=== PATIENT | female | born 1975 | race Hispanic/Latino ===

== ENCOUNTER 2016-10-23 10:50 | Emergency (ER) | payer MEDICAID ==
[2016-10-23 11:44] VITALS: BMI 51.0
[2016-10-23 11:47] VITALS: BP 133/92; PULSE 67; RESP 20; TEMP 98; O2SAT 98
--- NOTE | 2016-10-23 12:11 | C.PDOC ---
History Of Present Illness 41 y/o female with hx asthma c/o cough for more than 3 weeks; seen by PMD few days after start of cough and prescribed a 10 day course of Bactrim which she completed but still has cough with green sputum, pleuritic cp with cough. no fevers. sore throat x 2 days. no rhinorrhea, no nasal congestion. no ear pain. Time Seen by Provider: 10/23/16 11:54 Chief Complaint (Nursing): Cough, Cold, Congestion Past Medical History Reviewed: Historical Data, Nursing Documentation, Vital Signs Vital Signs: Last Vital Signs Temp 98.0 F 10/23/16 11:44 Pulse 67 10/23/16 11:44 Resp 20 10/23/16 11:44 BP 133/92 H 10/23/16 11:44 Pulse Ox 98 10/23/16 13:04 - Medical History PMH: Asthma Surgical History: No Surg Hx Family History: States: Unknown Family Hx - Social History Hx Tobacco Use: No Hx Alcohol Use: No Hx Substance Use: No - Immunization History Hx Tetanus Toxoid Vaccination: No Hx Influenza Vaccination: No Hx Pneumococcal Vaccination: No Review Of Systems Constitutional: Negative for: Fever, Chills ENT: Positive for: Throat Pain. Negative for: Ear Pain, Throat Swelling Cardiovascular: Negative for: Chest Pain Respiratory: Positive for: Cough, Pleuritic Pain. Negative for: Shortness of Breath Gastrointestinal: Negative for: Nausea, Vomiting, Abdominal Pain Skin: Negative for: Rash Physical Exam - Physical Exam Appears: Non-toxic, No Acute Distress Skin: Normal Color, Warm, Dry Head: Atraumatic, Normacephalic Eye(s): bilateral: Normal Inspection Ear(s): Bilateral: Normal Nose: Normal, No Discharge Oral Mucosa: Moist Tongue: Normal Appearing Lips: Normal Appearing Throat: Erythema (mild erythema, no exudates) Neck: Normal ROM Chest: Symmetrical, No Deformity, No Tenderness Cardiovascular: Rhythm Regular, No Murmur Respiratory: Normal Breath Sounds, No Accessory Muscle Use, No Rales, No Rhonchi , No Stridor, No Wheezing Extremity: No Pedal Edema, No Calf Tenderness Neurological/Psych: Oriented x3, Normal Speech, Normal Cognition ED Course And Treatment - Laboratory Results Urine POC: Negative O2 Sat by Pulse Oximetry: 98 Pulse Ox Interpretation: Normal - Radiology CXR: Read By Radiologist CXR Interpretation: No: No Acute Disease, Infiltrates Medical Decision Making Medical Decision Makin41 y/o asthmatic with cough for almost a month- upreg, cxr Disposition Counseled Patient/Family Regarding: Diagnosis, Need For Followup, Rx Given - Disposition Disposition: HOME/ ROUTINE Disposition Time: 13:05 Condition: STABLE Prescriptions: Albuterol 0.083% [Albuterol Sulfate 3 Ml] 3 ml IH BID #100 units Prednisone [Deltasone] 40 mg PO DAILY #6 tablet Albuterol HFA [Ventolin HFA 90 mcg/actuation (8 g)] 1 puff IH BID #1 inhaler Instructions: Acute Bronchitis (ED) Forms: General Discharge Instructions - Clinical Impression Clinical Impression: Bronchitis
--- NOTE | 2016-10-23 12:56 | RAD ---
HISTORY: cough x 1 m COMPARISON: 07/01/2016 TECHNIQUE: Chest PA and lateral FINDINGS: LUNGS: No focal airspace opacity. PLEURA: No significant pleural effusion identified. No pneumothorax apparent. CARDIOVASCULAR: Normal. OSSEOUS STRUCTURES: No significant abnormalities. VISUALIZED UPPER ABDOMEN: Normal. OTHER FINDINGS: None. IMPRESSION: No focal airspace opacity. No significant interval change. Cross-sectional imaging can be obtained if symptoms persist.
== END 2016-10-23 13:22 | disposition home or self-care (01) ==
LOC: C.ER 10:50
DX: J20.9 Acute bronchitis, unspecified (principal)

== ENCOUNTER 2016-11-18 14:32 | Emergency (ER) | payer MEDICAID ==
[2016-11-18 14:32] VITALS: BMI 51.0
[2016-11-18 14:40] VITALS: TEMP 99
[2016-11-18] MEDS ORDERED: Sodium Chloride 0.9% 1,000 ML IV ONE (15:17)
[2016-11-18] MEDS ORDERED: Sodium Chloride 0.9% 1,000 ML ONE (15:32)
[2016-11-18 15:39] LABS: BASO % 0.6 % (0.0-2.0); LYMPH # 0.6 K/uL (1.0-4.3); LYMPH % 14.5 % (20.0-40.0); MEAN CELL VOLUME 82.9 fL (81.0-99.0); MEAN CORPUSCULAR HEMOGLOBIN 28.9 pg (27.0-31.0); MEAN CORPUSCULAR HGB CONC 34.9 g/dL (33.0-37.0); MEAN PLATELET VOLUME 8.2 fL (7.2-11.7); MONO # 0.4 K/uL (0.0-0.8); MONO % 8.8 % (0.0-10.0); WHITE BLOOD COUNT 4.4 K/uL (4.8-10.8)
[2016-11-18 15:47] LABS: CHLORIDE 99 mmol/L (98-107)
[2016-11-18 15:48] LABS: SODIUM 134 mmol/L (132-148)
[2016-11-18 15:49] LABS: POTASSIUM 3.9 mmol/L (3.6-5.2)
[2016-11-18 15:51] LABS: ALB/GLOB RATIO 1.2 (1.0-2.1); ALKALINE PHOSPHATASE 65 U/L (38-126); AST/SGOT 47 U/L (14-36); BILIRUBIN,TOTAL 1.7 mg/dL (0.2-1.3); BLOOD UREA NITROGEN 9 mg/dL (7-17); CARBON DIOXIDE 27 mmol/L (22-30); GFR AFRICAN-AMERICAN > 60; INR 1.2; TOTAL PROTEIN 7.2 g/dL (6.3-8.3)
[2016-11-18 15:52] LABS: ALT/SGPT 56 U/L (9-52); CALCIUM 8.6 mg/dl (8.6-10.4); GLUCOSE,RANDOM 98 mg/dL (65-105); MAGNESIUM 1.7 mg/dL (1.6-2.3)
--- NOTE | 2016-11-18 16:13 | CT ---
PROCEDURE: CT HEAD WITHOUT CONTRAST. HISTORY: Headache COMPARISON: None available. TECHNIQUE: Axial computed tomography images were obtained through the head/brain without intravenous contrast. Radiation dose: Total exam DLP = 899.09 mGy-cm. This CT exam was performed using one or more of the following dose reduction techniques: Automated exposure control, adjustment of the mA and/or kV according to patient size, and/or use of iterative reconstruction technique. FINDINGS: HEMORRHAGE: No intracranial hemorrhage. BRAIN: No mass effect or edema. No atrophy or chronic microvascular ischemic changes. VENTRICLES: Unremarkable. No hydrocephalus. CALVARIUM: Unremarkable. PARANASAL SINUSES: Unremarkable as visualized. No significant inflammatory changes. MASTOID AIR CELLS: Unremarkable as visualized. No inflammatory changes. OTHER FINDINGS: None. IMPRESSION: Normal CT of the Head. No intracranial mass, hemorrhage or evidence of acute infarct.
[2016-11-18] MEDS ORDERED: Magnesium Sulfate 1 gm in D5W 1 GM/100 ML BAG IVPB STA (16:21)
--- NOTE | 2016-11-18 16:24 | C.PDOC ---
Time Seen by Provider: 11/18/16 15:10 Chief Complaint (Nursing): Headache History Per: Patient Onset/Duration Of Symptoms: Days (3), Gradual Current Symptoms Are (Timing): Still Present Severity: Moderate Quality: "Pain" Preceeding Symptoms: Known Migraine Symptoms Associated Symptoms: Photophobia, Nausea, Vomiting Additional History Per: Prior Records Past Medical History Reviewed: Historical Data, Nursing Documentation, Vital Signs Vital Signs: Last Vital Signs Temp 99 F 11/18/16 14:38 Pulse 86 11/18/16 16:47 Resp 20 11/18/16 16:47 BP 111/72 11/18/16 16:47 Pulse Ox 97 11/18/16 16:47 - Medical History PMH: Asthma, Migraine Surgical History: No Surg Hx Family History: States: Unknown Family Hx - Social History Hx Tobacco Use: No Hx Alcohol Use: No Hx Substance Use: No - Immunization History Hx Tetanus Toxoid Vaccination: No Hx Influenza Vaccination: No Hx Pneumococcal Vaccination: No Review Of Systems Except As Marked, All Systems Reviewed And Found Negative. Constitutional: Negative for: Fever, Weakness Eyes: Negative for: Pain, Vision Change ENT: Negative for: Nose Congestion Cardiovascular: Negative for: Chest Pain Respiratory: Negative for: Cough, Shortness of Breath Gastrointestinal: Positive for: Nausea, Vomiting. Negative for: Abdominal Pain , Diarrhea Genitourinary: Negative for: Dysuria Musculoskeletal: Negative for: Neck Pain Skin: Negative for: Rash Neurological: Positive for: Headache. Negative for: Weakness, Numbness, Incoordination, Change in Speech, Confusion, Seizures, Altered Mental Status Physical Exam - Physical Exam Appears: Non-toxic, No Acute Distress Skin: Normal Color, Warm, Dry, No Rash Head: Atraumatic, Normacephalic Eye(s): bilateral: Normal Inspection, PERRL, EOMI Neck: Normal ROM, Supple Cardiovascular: Rhythm Regular Respiratory: Normal Breath Sounds, No Accessory Muscle Use Gastrointestinal/Abdominal: Soft, No Tenderness Back: No CVA Tenderness Extremity: Normal ROM Neurological/Psych: Oriented x3, Normal Speech, Normal Cognition, Normal Cranial Nerves, No Cerebellar Signs, Normal Motor, Normal Sensation ED Course And Treatment - Laboratory Results Result Diagrams: 11/18/16 15:34 11/18/16 15:34 Lab Interpretation: No Acute Changes O2 Sat by Pulse Oximetry: 98 Pulse Ox Interpretation: Normal - CT Scan/US CT head Other Rad Studies (CT/US): Read By Radiologist, Radiology Report Reviewed CT/US Interpretation: IMPRESSION: Normal CT of the Head. No intracranial mass , hemorrhage or evidence of acute infarct. Progress Note: Pt feels much better and wants to go home. Reassessment Condition: Improved Progress - Interventions Interventions:: Observation, Intravenous fluid - Medications Administered Intravenous: Antiemetic, NSAID, Other (Mg.) - Data Reviewed Data Reviewed: Lab, Diagnostic imaging, Old records - Patient Status Patient status: Mostly improved - Continuity of Care Discussed patient case with:: Patient, ED Nurse - Patient Plan Patient Plan: Discharge, F/U with PCP Disposition Counseled Patient/Family Regarding: Studies Performed, Diagnosis, Need For Followup, Rx Given - Disposition Referrals: Marvin Rossi MD [Staff Provider] - Disposition: HOME/ ROUTINE Disposition Time: 18:05 Condition: IMPROVED Additional Instructions: Follow up with your doctor. Follow up with a Neurologist for further evaluation and treatment. Return to the ER if you develop weakness, numbness, confusion, worsening of symptoms or if you have any other concerns. Prescriptions: Acetaminophen/Butalbital/Caf [Fioricet] 1 tab PO TID PRN #20 tab PRN Reason: Headache Instructions: Migraine Headache (ED) - Clinical Impression Clinical Impression: Headache
[2016-11-18] MEDS ORDERED: Magnesium Sulfate 1 gm in D5W 1 GM/100 ML BAG IVPB ONE (16:39)
[2016-11-18 16:48] VITALS: RESP 20
[2016-11-18 18:19] VITALS: BP 129/85; PULSE 61; O2SAT 99
== END 2016-11-18 18:19 | disposition home or self-care (01) ==
LOC: C.ER 14:32
DX: R51 Headache (principal)
CPT/HCPCS: 70450; 80053; 83735; 85025; 85610; 85730; 96361; 96365; 96375; 99285; J1885; J2765; J3475; J7040

== ENCOUNTER 2017-06-28 09:30 | Emergency (ER) | payer MEDICAID ==
[2017-06-28 09:30] VITALS: BMI 53.7
--- NOTE | 2017-06-28 10:41 | C.PDOC ---
History Of Present Illness R LEG SWELLING, REDNESS X 4 DAYS. S/P R PLANTAR FASCIA RELEASE 05/26. PS HAS BEEN HEALING WELL UNTIL NOW. NO FEVER, CHILLS HO DM. EXAM NONTOXIC CV RRR NARD EXT R LEG +SWELLING. NO PALP CORD. NO EDEMA ATRAUM SKIN +NONBLANCHING ERYTHEMA TO BELOW KNEE, CIRCUMFERENTIAL. HEALING POST OP SCARS R FOOT AND CALF. NEURO INTACT Time Seen by Provider: 06/28/17 09:46 Chief Complaint (Nursing): Lower Extremity Problem/Injury History Per: Patient History/Exam Limitations: no limitations Onset/Duration Of Symptoms: Days (4) Current Symptoms Are (Timing): Still Present Past Medical History Reviewed: Historical Data, Nursing Documentation, Vital Signs Vital Signs: Last Vital Signs Temp 98.3 F 06/28/17 09:33 Pulse 75 06/28/17 09:33 Resp 16 06/28/17 09:33 BP 146/84 06/28/17 09:33 Pulse Ox 95 06/28/17 11:14 - Medical History PMH: Asthma, Migraine - [facility] Procedures NEBULIZER THERAPY (08/07/14) Family History: States: Hypertension - Social History Hx Tobacco Use: No Hx Alcohol Use: No Hx Substance Use: No - Immunization History Hx Tetanus Toxoid Vaccination: No Hx Influenza Vaccination: No Hx Pneumococcal Vaccination: No Review Of Systems Except As Marked, All Systems Reviewed And Found Negative. Constitutional: Negative for: Fever, Chills Cardiovascular: Negative for: Chest Pain Respiratory: Negative for: Shortness of Breath Gastrointestinal: Negative for: Nausea, Vomiting Musculoskeletal: Positive for: Other ((+) Right leg swelling and redness) Neurological: Negative for: Weakness, Numbness Physical Exam - Physical Exam Appears: Non-toxic, No Acute Distress Skin: Warm, Dry, No Rash Head: Atraumatic, Normacephalic Eye(s): bilateral: Normal Inspection, PERRL, EOMI Oral Mucosa: Moist Cardiovascular: Rhythm Regular, No Murmur Respiratory: Normal Breath Sounds, No Stridor, No Wheezing Extremity: Other (Right Leg - swelling. No palpable cord. No edema. Non blanching erythema below knee, circumferential. Healing post op scars to right foot and calf.) Pulses: Left Dorsalis Pedis: Normal, Right Dorsalis Pedis: Normal Neurological/Psych: Oriented x3, Normal Speech, Normal Motor, Normal Sensation ED Course And Treatment - Laboratory Results Result Diagrams: 06/28/17 11:02 06/28/17 11:02 O2 Sat by Pulse Oximetry: 95 (RA) Pulse Ox Interpretation: Normal Progress - Re-Evaluation Re-evaluation Note: 06/28/17 10:43 D/W PODIATRY RESIDENT DR AGUILAR AWARE OF ER FINDINGS WILL EVAL 06/28/17 12:54 SP [facility], CLEARED FOR DC. DC AUGMENTIN FU OFFICE - Data Reviewed Data Reviewed: Lab, Diagnostic imaging, Old records Medical Decision Making Medical Decision Making: PLAN: * Dopplar * CBC * BMP Disposition Counseled Patient/Family Regarding: Studies Performed, Diagnosis, Need For Followup, Rx Given - Disposition Referrals: YOUR,[facility]LE [facility] [Other] Disposition: HOME/ ROUTINE Disposition Time: 12:55 Condition: IMPROVED Prescriptions: Amoxicillin/Clavulanate [Augmentin 875 MG-125 MG] 1 tab PO BID #14 tab Instructions: Cellulitis (ED) Forms: [employer] (Indonesian) - Clinical Impression Clinical Impression: Cellulitis - Scribe Statement The provider has reviewed the documentation as recorded by the Dillon Casey Provider Attestation: All medical record entries made by the Dillon were at my direction and personally dictated by me. I have reviewed the chart and agree that the record accurately reflects my personal performance of the history, physical exam, medical decision making, and the department course for this patient. I have also personally directed, reviewed, and agree with the discharge instructions and disposition.
[2017-06-28 11:06] LABS: BASO % 0.4 % (0.0-2.0); EOS # 0.1 K/uL (0.0-0.7); HEMATOCRIT 32.7 % (34.0-47.0); LYMPH # 1.7 K/uL (1.0-4.3); LYMPH % 19.9 % (20.0-40.0); MEAN CELL VOLUME 83.8 fL (81.0-99.0); MEAN CORPUSCULAR HEMOGLOBIN 30.6 pg (27.0-31.0); MEAN CORPUSCULAR HGB CONC 36.6 g/dL (33.0-37.0); MEAN PLATELET VOLUME 8.6 fL (7.2-11.7); MONO # 0.5 K/uL (0.0-0.8); MONO % 5.4 % (0.0-10.0); RED CELL DISTRIBUTION WIDTH 13.4 % (11.5-14.5); WHITE BLOOD COUNT 8.6 K/uL (4.8-10.8)
[2017-06-28 11:20] LABS: BLOOD UREA NITROGEN 12 mg/dL (7-17); CALCIUM 8.5 mg/dl (8.6-10.4); CARBON DIOXIDE 29 mmol/L (22-30); CHLORIDE 99 mmol/L (98-107); GFR AFRICAN-AMERICAN > 60; GLUCOSE,RANDOM 95 mg/dL (65-105); POTASSIUM 3.7 mmol/L (3.6-5.2); SODIUM 135 mmol/L (132-148)
[2017-06-28] MEDS ORDERED: ceFAZolin 1 gm FROZEN Premix 1 GM/50 ML ML IVPB ONE (11:46)
[2017-06-28 13:11] VITALS: BP 124/87; PULSE 72; RESP 18; TEMP 98.2; O2SAT 100
--- NOTE | 2017-06-28 20:24 | CP.PCM.CON ---
History of Present Illness - History of Present Illness History of Present Illness: Podiatry Consult Note - Dr. Bonilla 41 year old female patient seen and evaluated in ED for right leg swelling and redness of 4 days duration. Patient hemodynamically stable and NAD. Patient denies any trauma. Of note, patient had a plantar fasciotomy with gastrocnemius recession by body rolling machine tender Dr. Cobb at [facility] in May however patient denies any issues to surgical site. Patient denies N/V/F/D/C/SOB/calf pain. PMH asthma, migraines PSH: none FH: diabetes, cancer SH: denies ETOH, tobacco use, illicit drug use All: mustard (hives) Review of Systems - Review of Systems All systems: reviewed and no additional remarkable complaints except (as per HPI ) Past Patient History - Infectious Disease Hx of Infectious Diseases: None - Past Medical History & Family History Past Medical History?: No - Past Social History Smoking Status: Never Smoked - CARDIAC Hx Cardiac Disorders: No - PULMONARY Hx Asthma: Yes - NEUROLOGICAL Hx Migraine: Yes - HEENT Hx HEENT Problems: No - RENAL Hx Chronic Kidney Disease: No - ENDOCRINE/METABOLIC Hx Endocrine Disorders: No - HEMATOLOGICAL/ONCOLOGICAL Hx Blood Disorders: No - INTEGUMENTARY Hx Dermatological Problems: No - MUSCULOSKELETAL/RHEUMATOLOGICAL Hx Musculoskeletal Disorders: No - GASTROINTESTINAL Hx Gastrointestinal Disorders: No - GENITOURINARY/GYNECOLOGICAL Hx Genitourinary Disorders: No - PSYCHIATRIC Hx Substance Use: No - SURGICAL HISTORY Hx Surgeries: Yes Hx Bile Duct Stent: No Hx Eye Surgery: Yes (tighten muscle elissa eyes at age 2) Other/Comment: right foot sx (05/26/17) - ANESTHESIA Hx Anesthesia: Yes Hx Anesthesia Reactions: No Hx Malignant Hyperthermia: No Meds Home Medications: Home Medication List Medication Instructions Recorded Confirmed Type Amoxicillin/Clavulanate [Augmentin 1 tab PO BID #14 tab 06/28/17 Rx 875 MG-125 MG] Allergies/Adverse Reactions: Allergies Allergy/AdvReac Type Severity Reaction Status Date / Time mustard Allergy Verified 06/28/17 09:33 Physical Exam - Constitutional Appears: Well, Non-toxic, No Acute Distress - Extremities Exam Additional comments: VASC: DP and PT pulses palpable b/l. CFT brisk. Temperature gradient WNL. Mild nonpitting edmea noted to bilateral LE, R>L. No increase in warmth to RLE. NEURO: Gross sensation intact bilaterally. DERM: No open lesions noted. Very mild nonblanchable erythema noted to RLE. Well healed cicatrices to RLE plantar heel and calf. Skin appears well hydrated. ORTHO: No pain on palpation noted. No palpable cord RLE. No pain on calf squeeze. - Neurological Exam Neurological exam: Alert, Oriented x3 - Psychiatric Exam Psychiatric exam: Normal Affect, Normal Mood Results - Vital Signs Recent Vital Signs: Last Vital Signs Temp 98.2 F 06/28/17 13:11 Pulse 72 06/28/17 13:11 Resp 18 06/28/17 13:11 BP 124/87 06/28/17 13:11 Pulse Ox 100 06/28/17 13:11 - Labs Result Diagrams: 06/28/17 11:02 06/28/17 11:02 Labs: Laboratory Results - last 24 hr 06/28/17 06/28/17 11:02 11:02 WBC 8.6 D RBC 3.91 Hgb 12.0 Hct 32.7 L MCV 83.8 MCH 30.6 MCHC 36.6 RDW 13.4 Plt Count 213 MPV 8.6 Neut % (Auto) 73.3 Lymph % (Auto) 19.9 L [place] % (Auto) 5.4 Eos % (Auto) 1.0 Baso % (Auto) 0.4 Neut # 6.3 Lymph # 1.7 [place] # 0.5 Eos # 0.1 Baso # 0.0 Sodium 135 Potassium 3.7 Chloride 99 Carbon Dioxide 29 Anion Gap 10 BUN 12 Creatinine 0.7 Est GFR ( Amer) > 60 Est GFR (Non-Af Amer) > 60 Random Glucose 95 Calcium 8.5 L Assessment & Plan - Assessment and Plan (Free Text) Assessment: 41 year old female with right leg swelling, possible cellulitis Plan: Patient seen and evaluated in ED Discussed with attending, Dr. Bonilla Afebrile, absent leukocytosis (WBC 8.6) LE duplex is negative for DVT Not clinically suspicious of DVT Rx Augmentin Advised patient to return to ED if symptoms worsen Patient to follow up with Dr. Bonilla in podiatry clinic within 1 week of discharge Stable per podiatry standpoint Thank you for the consult, please reconsult podiatry as needed
--- NOTE | 2017-07-01 11:04 | VASCLAB ---
PROCEDURE: Right Lower Extremity Venous Duplex Exam. HISTORY: SWELLING PRIORS: None. TECHNIQUE: Right common femoral, femoral, popliteal and posterior tibial, peroneal and great saphenous veins were evaluated. Flow was assessed with color Doppler, compressibility, assessment of phasic flow and augmentation response. Report prepared by FAISAL Montejo, RVT FINDINGS: RIGHT: 1. Common Femoral Vein: 1.1. Compressibility - Fully compressible: Thrombus - None: Flow - Phasic: Augmentation -Normal: Reflux - None. 2. Femoral Vein: 2.1. Compressibility - Fully compressible: Thrombus - None: Flow - Phasic: Augmentation -Normal: Reflux - None. 3. Popliteal Vein: 3.1. Compressibility - Fully compressible: Thrombus - None: Flow - Phasic: Augmentation -Normal: Reflux - None. 4. Posterior Tibial Vein: 4.1. Compressibility - Fully compressible: Thrombus - None: Flow - Phasic: Augmentation -Normal: Reflux - None. 5. Peroneal Vein: 5.1. Compressibility - Fully compressible: Thrombus - None: Flow - Phasic: Augmentation -Normal: Reflux - None. 6. Great Saphenous Vein: 6.1. Compressibility - Fully compressible: Thrombus -None: Flow - Phasic: Augmentation - Normal: Reflux - None. OTHER FINDINGS: IMPRESSION: No evidence of deep or superficial vein thrombosis of the right lower extremity with excellent venous flow. Normal valve function noted of the right side. Normal venous flow noted in the left common femoral vein.
== END 2017-06-28 13:11 | disposition home or self-care (01) ==
LOC: C.ER 09:30
DX: L03.115 Cellulitis of right lower limb (principal)
CPT/HCPCS: 80048; 85025; 87040; 93971; 96365; 99284; J0690

== ENCOUNTER 2017-08-21 16:08 | Emergency (ER) | payer MEDICAID ==
[2017-08-21 17:07] VITALS: BMI 30.9
--- NOTE | 2017-08-21 17:12 | C.PDOC ---
History Of Present Illness 42 year old female presents to ED with complaints of tactile fever, headache, cough and congestion for 3 days. She has history of migraines and also reports associated nausea and photophobia. She took Fioricet with minimal relief. She denies chest pain, SOB, vomiting, dizziness, vision changes. Time Seen by Provider: 08/21/17 16:46 Chief Complaint (Nursing): Headache History Per: Patient History/Exam Limitations: no limitations Onset/Duration Of Symptoms: Days Current Symptoms Are (Timing): Still Present Past Medical History Reviewed: Historical Data, Nursing Documentation, Vital Signs Vital Signs: Last Vital Signs Temp 99.6 F 08/21/17 16:43 Pulse 90 08/21/17 16:43 Resp 18 08/21/17 16:43 BP 126/76 08/21/17 16:43 Pulse Ox 97 08/21/17 18:06 - Medical History PMH: Asthma, Migraine Denies: Chronic Kidney Disease - [facility] Procedures NEBULIZER THERAPY (08/07/14) Family History: States: Hypertension - Social History Hx Tobacco Use: No Hx Alcohol Use: No Hx Substance Use: No - Immunization History Hx Tetanus Toxoid Vaccination: No Hx Influenza Vaccination: No Hx Pneumococcal Vaccination: No Review Of Systems Except As Marked, All Systems Reviewed And Found Negative. Constitutional: Negative for: Fever Eyes: Positive for: Other (Photophobia) ENT: Positive for: Nose Congestion Cardiovascular: Negative for: Chest Pain, Palpitations Respiratory: Positive for: Cough. Negative for: Shortness of Breath Gastrointestinal: Positive for: Nausea. Negative for: Vomiting Musculoskeletal: Negative for: Neck Pain, Back Pain Neurological: Positive for: Headache. Negative for: Weakness, Numbness Physical Exam - Physical Exam Appears: Non-toxic, No Acute Distress, Other (active cough, dry. no acute respiratory distress) Skin: Normal Color, Warm, Dry, No Rash Head: Normacephalic Eye(s): bilateral: Normal Inspection, PERRL Ear(s): Bilateral: Normal Nose: Normal Oral Mucosa: Moist Lips: Normal Appearing Neck: Normal ROM Chest: Symmetrical Cardiovascular: Rhythm Regular, No Murmur Respiratory: Normal Breath Sounds, No Accessory Muscle Use, No Wheezing Extremity: Normal ROM Neurological/Psych: Oriented x3, Normal Speech ED Course And Treatment O2 Sat by Pulse Oximetry: 97 (RA) Pulse Ox Interpretation: Normal Medical Decision Making Medical Decision Making: Impression: headache, URI sx Plan: * POC preg- neg * Toradol 1800 patient complains of nausea and vomited once non-bilious. Ora KHAN ordered Re-Eval: Patient has no fever and is seated comfortable in the dark. She reports feeling better. She has no neuro deficits or signs of respiratory distress. Recommend supportive treatment for URI sx. Disposition Counseled Patient/Family Regarding: Diagnosis, Need For Followup, Rx Given - Disposition Referrals: [facility] [Outside] [facility] [Outside] Disposition: HOME/ ROUTINE Disposition Time: 18:00 Condition: STABLE Additional Instructions: Follow up with your primary medical doctor or clinic in 2-5 days for further evaluation. Take medications as prescribed. Return to the emergency department at any time if symptoms persist or worsen. Prescriptions: Albuterol HFA [Ventolin HFA 90 mcg/actuation (8 g)] 1 puff IH Q4 #1 puff Benzonatate [Tessalon Perles] 100 mg PO TID #30 sgl Metoclopramide [Reglan] 1 tab PO TID PRN #25 tab PRN Reason: Nausea/Vomiting Prednisone 50 mg PO DAILY #4 tablet Instructions: Migraine Headache (DC), Upper Respiratory Infection (ED) Forms: [employer] (Polish) - POA Present On Arrival: None - Clinical Impression Clinical Impression: Influenza-like illness, Headache - Scribe Statement The provider has reviewed the documentation as recorded by the Scribe (Naya Hendrix) All medical record entries made by the Scribe were at my direction and personally dictated by me. I have reviewed the chart and agree that the record accurately reflects my personal performance of the history, physical exam, medical decision making, and the department course for this patient. I have also personally directed, reviewed, and agree with the discharge instructions and disposition.
[2017-08-21 18:56] VITALS: BP 117/80; PULSE 76; RESP 20; TEMP 99
[2017-08-21 18:57] VITALS: O2SAT 97
== END 2017-08-21 18:50 | disposition home or self-care (01) ==
LOC: C.ER 16:08
DX: J11.1 Influenza due to unidentified influenza virus with other respiratory manifestations (principal); R51 Headache
CPT/HCPCS: 96372; 99285; J1885

== ENCOUNTER 2017-08-24 12:21 | Emergency (ER) | payer MEDICAID ==
[2017-08-24 12:27] VITALS: BMI 49.6
[2017-08-24 12:30] VITALS: BP 144/83; PULSE 84; RESP 18; TEMP 98; O2SAT 97
--- NOTE | 2017-08-24 13:19 | C.PDOC ---
History Of Present Illness Patient comes in today with complaints of dry, non-productive cough, bodyaches and sore throat. Patient was seen in this facility on 08/21 for similar complaints, was evaluated for the flu and discharged home with prescriptions for tessalon perles, prednisone, reglan and albuterol. Patient states she has been taking medications as prescribed but the cough still persists. She also reports bilateral ribs pain due to coughing. She has a subjective fever as well. Of note, patient states she has a nebulizer machine at home but she ran out of her duonebs and is requesting a refill; also states she has been taking Dayquil 1x per day as it makes her sleepy. Patient offers no other complaints. Time Seen by Provider: 08/24/17 13:06 Chief Complaint (Nursing): Abdominal Pain History Per: Patient History/Exam Limitations: no limitations Onset/Duration Of Symptoms: Days Current Symptoms Are (Timing): Still Present Past Medical History Reviewed: Historical Data, Nursing Documentation, Vital Signs Vital Signs: Last Vital Signs Temp 98 F 08/24/17 12:27 Pulse 84 08/24/17 12:27 Resp 18 08/24/17 12:27 BP 144/83 08/24/17 12:27 Pulse Ox 97 08/24/17 13:30 - Medical History PMH: Asthma, Migraine Denies: Chronic Kidney Disease Surgical History: No Surg Hx - [facility] Procedures NEBULIZER THERAPY (08/07/14) Family History: States: Unknown Family Hx, Hypertension - Social History Hx Tobacco Use: No Hx Alcohol Use: No Hx Substance Use: No - Immunization History Hx Tetanus Toxoid Vaccination: No Hx Influenza Vaccination: No Hx Pneumococcal Vaccination: No Review Of Systems Except As Marked, All Systems Reviewed And Found Negative. Constitutional: Positive for: Fever (subjective) Cardiovascular: Positive for: Other (bilateral ribs pain after coughing) Respiratory: Positive for: Cough. Negative for: Sputum Physical Exam - Physical Exam Appears: Non-toxic, No Acute Distress, Other (patient morbidly obese) Throat: Normal, No Erythema, No Exudate Chest: Symmetrical Cardiovascular: Rhythm Regular Respiratory: Normal Breath Sounds, No Wheezing ED Course And Treatment O2 Sat by Pulse Oximetry: 97 (RA) Pulse Ox Interpretation: Normal Medical Decision Making Medical Decision Making: persistent flu/influenza symptoms, eval 08/21 benign and remains same. Educated on influenza probably lasting 1-2 weeks pt working @ [facility]- high risk exposures, will take next 3 days off to rest remains clear lungs but barking cough not taking Dayquil/Nyquil sufficiently Refill Duonebs for home use- has machine Disposition Doctor Will See Patient In The: Office Counseled Patient/Family Regarding: Studies Performed, Diagnosis - Disposition Referrals: John Sharma MD [Non-Staff] - Disposition: HOME/ ROUTINE Disposition Time: 13:19 Condition: GOOD Additional Instructions: contine Dayquil and Nyquil (or non-name brand equivalent) liberally per package instructions Duoneb inhaled treatments 2 ampules every 4 hours as needed No work until afebrile for 24 hours. Prescriptions: Albuterol/Ipratropium [Duoneb 3 MG/3 Ml-0.5 MG/3 Ml 3 Ml] 6 ml IH Q4H PRN #100 neb PRN Reason: asthma Instructions: Flu, Adult (DC) Forms: [employer] (Lao) - Clinical Impression Clinical Impression: Influenza-like illness - Scribe Statement The provider has reviewed the documentation as recorded by the Dillon Cohen Provider Attestation: All medical record entries made by the Adeolaibe were at my direction and personally dictated by me. I have reviewed the chart and agree that the record accurately reflects my personal performance of the history, physical exam, medical decision making, and the department course for this patient. I have also personally directed, reviewed, and agree with the discharge instructions and disposition.
[2017-08-24] MEDS ORDERED: guaiFENesin 100 mg/5 ml Syrup UD PO STA (13:23)
[2017-08-24 13:31] LABS: HCG,QUALITATIVE URINE NEGATIVE (NEGATIVE)
[2017-08-24 13:34] LABS: SQUAMOUS EPITHIAL 8 /hpf (0-5); URINE BACTERIA RARE (<OCC); URINE BILIRUBIN NEGATIVE (NEGATIVE); URINE BLOOD 1+ (NEGATIVE); URINE CLARITY Hazy (Clear); URINE COLOR Yellow (YELLOW); URINE GLUCOSE (UA) NORMAL (Normal); URINE LEUKOCYTE ESTERASE 2+ Leu/uL (Negative); URINE NITRATE NEGATIVE (NEGATIVE); URINE PROTEIN NEGATIVE (NEGATIVE); URINE UROBILINOGEN NORMAL mg/dL (0.2-1.0)
[2017-08-24] MEDS ORDERED: guaiFENesin 100 mg/5 ml Syrup UD ONE (13:34)
== END 2017-08-24 13:30 | disposition home or self-care (01) ==
LOC: C.ER 12:21
DX: J11.1 Influenza due to unidentified influenza virus with other respiratory manifestations (principal)

== ENCOUNTER 2017-11-18 18:34 | Emergency (ER) | payer MEDICAID ==
[2017-11-18 18:34] VITALS: BMI 53.1
--- NOTE | 2017-11-18 19:42 | C.PDOC ---
History Of Present Illness 42yo female, with history of migraines, presents to ER with complaints of a headache for the past 5 days with associated photophobia. She reports taking Advil, fioricet, naproxen for her symptoms with no relief. She denies any nausea , dizziness, fevers neck pain or vision changes. Time Seen by Provider: 11/18/17 18:52 Chief Complaint (Nursing): Headache History Per: Patient History/Exam Limitations: no limitations Onset/Duration Of Symptoms: Days (5) Current Symptoms Are (Timing): Still Present Quality: "Pain" Associated Symptoms: Photophobia. denies: Blurred Vision, Nausea, Vomiting, Extremity Weakness Past Medical History Reviewed: Historical Data, Nursing Documentation, Vital Signs Vital Signs: Last Vital Signs Temp 98.1 F 11/18/17 19:51 Pulse 71 11/18/17 19:51 Resp 18 11/18/17 19:51 BP 133/85 11/18/17 19:51 Pulse Ox 97 11/18/17 20:45 - Medical History PMH: Asthma, Migraine Denies: Chronic Kidney Disease Surgical History: No Surg Hx - [facility] Procedures NEBULIZER THERAPY (08/07/14) Family History: States: Unknown Family Hx, Hypertension - Social History Hx Tobacco Use: No Hx Alcohol Use: No Hx Substance Use: No - Immunization History Hx Tetanus Toxoid Vaccination: Yes Hx Influenza Vaccination: No Hx Pneumococcal Vaccination: No Review Of Systems Except As Marked, All Systems Reviewed And Found Negative. Constitutional: Negative for: Fever, Chills Eyes: Positive for: Other (photophobia). Negative for: Vision Change Neurological: Positive for: Headache Physical Exam - Physical Exam Appears: Non-toxic, No Acute Distress Skin: Warm, Dry Head: Atraumatic, Normacephalic, Tenderness (left parietal scalp tenderness), No Swelling, No Abrasion, No Laceration Eye(s): bilateral: Normal Inspection, PERRL, EOMI Ear(s): Bilateral: Normal Throat: Normal, No Erythema, No Exudate Neck: Normal ROM, Supple Chest: Symmetrical Cardiovascular: Rhythm Regular, No Murmur Respiratory: Normal Breath Sounds, No Wheezing Extremity: Normal ROM, No Tenderness, No Deformity, No Swelling Neurological/Psych: Oriented x3, Normal Speech, Normal Motor, Normal Sensation Gait: Steady ED Course And Treatment O2 Sat by Pulse Oximetry: 97 (RA) Pulse Ox Interpretation: Normal Medical Decision Making Medical Decision Making: Impression: Headache Plan: -- Reglan 10mg IVP -- Toradol 30mg IVP --IV NS Progress: After finishing IVF, patient was reevaluated, and observed to be laying supine in dark room stretcher. Patient reports improvement after medications. Patient is stable for discharge home. Patient given instructions to follow up with PMD in 2-3 days. Disposition Counseled Patient/Family Regarding: Diagnosis, Need For Followup - Disposition Referrals: John Sharma MD [Non-Staff] - Disposition: HOME/ ROUTINE Disposition Time: 19:41 Condition: STABLE Additional Instructions: Rx sent to [facility] Follow up with your primary medical doctor or clinic in 2-5 days for further evaluation. Take medications as prescribed. Return to the emergency department at any time if symptoms persist or worsen. Prescriptions: Metoclopramide [Reglan] 1 tab PO TID PRN #25 tab PRN Reason: Nausea/Vomiting Instructions: Migraine Headache (DC) Forms: [employer] (Libyan) - POA Present On Arrival: None - Clinical Impression Clinical Impression: Migraine - PA / INTERNET MARKET[employer] SPECIALIST / Resident Statement MD/DO has reviewed & agrees with the documentation as recorded. - Scribe Statement The provider has reviewed the documentation as recorded by the Scribe (Aisha Cohen) Provider Attestation: All medical record entries made by the Scribe were at my direction and personally dictated by me. I have reviewed the chart and agree that the record accurately reflects my personal performance of the history, physical exam, medical decision making, and the department course for this patient. I have also personally directed, reviewed, and agree with the discharge instructions and disposition.
[2017-11-18 19:53] VITALS: BP 133/85; PULSE 71; RESP 18; TEMP 98.1
[2017-11-18 20:37] VITALS: O2SAT 97
== END 2017-11-18 20:01 | disposition home or self-care (01) ==
LOC: C.ER 18:34
DX: G43.909 Migraine, unspecified, not intractable, without status migrainosus (principal)
CPT/HCPCS: 96374; 96375; 99285; J1885; J2765